=== PATIENT | female | born 1965 | race Caucasian/White ===

== ENCOUNTER 2022-06-26 12:50 | Emergency (ER) | payer BC, SELFPAY ==
[2022-06-26 13:07] VITALS: BP 167/84; PULSE 73; RESP 16; TEMP 36.4; O2SAT 97; BMI 46.9
--- NOTE | 2022-06-26 13:37 | ED_ITS ---
HPI - General Adult General Chief complaint: High Blood Pressure Stated complaint: High Blood pressure Time Seen by Provider: 06/26/22 13:02 History of Present Illness HPI narrative: This 57-year-old woman comes in with concern about elevated blood pressure. She states that she feels a mild headache and some pressure in her head but otherwise feels normal. She arrives with initial blood pressure at 167/84. About 15 minutes later her repeat blood pressure had a systolic value of 142. The patient is not showing any signs of cerebrovascular injury. She does not know of any trans with regard to her blood pressure. She is not on any antihypertensive medications. Related Data Home Medications Medication Instructions Recorded Confirmed bupropion HCl 300 mg 24 hr tablet, 300 mg PO DAILY 06/26/22 06/26/22 extended release simvastatin 20 mg tablet 20 mg PO DAILY 06/26/22 06/26/22 sumatriptan succinate 50 mg tablet 50 mg PO Q2H PRN 06/26/22 06/26/22 venlafaxine 150 mg 150 mg PO DAILY 06/26/22 06/26/22 capsule,extended release 24 hr Allergies Allergy/AdvReac Type Severity Reaction Status Date / Time No Known Drug Allergies Allergy Verified 06/26/22 13:11 Review of Systems Status of ROS: Reports: 10 or more systems reviewed and unremarkable except as noted in History and below Narrative: Constitutional: No fevers, no weight gain or loss. Eyes: No discharge. No vision changes. HENT: No congestion, no sore throat, no ear pain. Cardiovascular: No chest pain, no palpitations. Respiratory: No shortness of breath, no wheezes, no cough. Gastrointestinal: No abdominal pain, no vomiting, no diarrhea. Genitourinary: No dysuria, no hematuria. Musculoskeletal: Normal range of motion. Skin: No rashes, no pruritis. Neurological: No dizziness, weakness, sensory change, speech change. Endo/Heme/Allergies: No bruising or bleeding. No polydipsia. Pysch: no suicidality, no anxiety, no insomnia. All other systems reviewed and are negative. PFSH PFSH Social History Smoking Status: Never smoker Do you use any of these nicotine containing products: None Second hand tobacco smoke exposure: No How often do you have a drink containing alcohol: 2-4 times a month How many standard drinks containing alcohol do you have on a typical day: 1 or 2 How often do you have six or more drinks on one occasion: Never AUDIT-C Alcohol total score: 2 Non-prescribed substance use: denies use Exam Narrative: Exam Narrative: Constitutional: Well-developed, well-nourished, no acute distress. HEENT: Normocephalic, atraumatic. Neck: Normal range of motion. Nontender. Supple. Heart: Regular. No murmurs. Normal rate. Intact distal pulses. Lungs: Clear to auscultation. No chest discomfort. No wheezes, rhonchi, or rales. Abdomen: Normal bowel sounds. Nontender. No rebound tenderness. Genitalia: Deferred. Back: No midline tenderness. Normal range of motion. Extremities: Normal range of motion. No injury. Skin: Intact. No rash. Warm. No erythema or pallor. Neurologic: No altered sensation. No weakness. Alert and oriented. Psychiatric: No suicidality. No anxiety or depression. No insomnia. Nursing notes and vitals signs are reviewed. Const: Vital Signs, click to edit/add: Vital Signs - 24 hr 06/26/22 13:07 Temperature 97.5 F L Pulse Rate [Right Pulse Oximeter] 73 Respiratory Rate 16 Blood Pressure [Ri ght Upper Arm] 167/84 H Pulse Oximetry 97 Oxygen Delivery Me thod Room Air Course Vital Signs Vital signs: Initial Vital Signs Temperature 97.5 F L 06/26/22 13:07 Temperature Source Temporal Artery Scan 06/26/22 13:07 Pulse Rate 73 06/26/22 13:07 Respiratory Rate 16 06/26/22 13:07 Blood Pressure 167/84 H 06/26/22 13:07 Blood Pressure Mean 111 06/26/22 13:07 Blood Pressure Position Sitting 06/26/22 13:07 Pulse Oximetry 97 06/26/22 13:07 Oxygen Delivery Method 06/26/22 13:07 Vital Signs Temperature 97.5 F L 06/26/22 13:07 Pulse Rate 73 06/26/22 13:07 Respiratory Rate 16 06/26/22 13:07 Blood Pressure 167/84 H 06/26/22 13:07 Pulse Oximetry 97 06/26/22 13:07 Oxygen Delivery Method 06/26/22 13:07 Temperature 97.5 F L 06/26/22 13:07 Pulse Rate 73 06/26/22 13:07 Respiratory Rate 16 06/26/22 13:07 Blood Pressure 167/84 H 06/26/22 13:07 Pulse Oximetry 97 06/26/22 13:07 Oxygen Delivery Method 06/26/22 13:07 Medical Decision Making MDM Narrative Medical decision making narrative: This patient arrives with slightly elevated blood pressure. Her repeat reading came down by 25 points for the systolic value. IA reviewed guidelines regarding diagnosis and treatment of blood pressure including 3 criteria of 2 weeks of time, 3 readings during that time, and when a person feels normal. I did encourage her to repeat checking her blood pressure and follow-up with her primary physician. For now there are no obvious indications for managing her blood pressure. The patient understands these matters and agrees with this treatment plan. Discharge Plan Discharge Clinical Impression: Elevated blood pressure reading Patient Disposition: Home, Self-Care Condition: Stable Additional Instructions: Recheck blood pressure several times over the next weeks. Follow-up with primary physician for ongoing management if needed. Prescriptions: No Action bupropion HCl 300 mg tablet extended release 24 hr 300 mg PO DAILY simvastatin 20 mg tablet 20 mg PO DAILY sumatriptan succinate 50 mg tablet 50 mg PO Q2H PRN Label Comments: TAKE 1 TO 2 TABLETS BY MOUTH AT ONSET OF SYMPTOMS FOR HEADACHE. MAY REPEAT AFTER 2 HOURS venlafaxine 150 mg capsule,extended release 24hr 150 mg PO DAILY Stand Alone Forms: [email or web address] Info Instructions
== END 2022-06-26 14:36 | disposition home or self-care (01) ==
LOC: ED 14:24
PROVIDERS: Emergency Provider Emergency Medicine Emergency Medical Services; PCP Physician Assistant
DX: R03.0 Elevated blood-pressure reading, without diagnosis of hypertension (principal)
CPT/HCPCS: 99282; 99284